=== PATIENT | male | born 1940 | race Hispanic/Latino ===

== ENCOUNTER → 2020-09-23 | Outpatient (CLI) | payer OTHER, MEDICARE | END | disposition home or self-care (01) | LOC: RAH 13:23 | PROVIDERS: ATTEND Internal Medicine | DX: S32.000S Wedge compression fracture of unspecified lumbar vertebra, sequela (principal); M47.816 Spondylosis without myelopathy or radiculopathy, lumbar region; M48.061 Spinal stenosis, lumbar region without neurogenic claudication; X58.XXXS Exposure to other specified factors, sequela | CPT/HCPCS: 72131 ==